=== PATIENT | male | born 1965 | race Caucasian/White ===

== ENCOUNTER 2021-12-05 19:06 | Emergency (ER) | payer MEDICAID ==
[~2021-12-05] VITALS: Ht 25.4 cm; Wt 107.5 kg
[2021-12-05 19:10] VITALS: BP_SYST 157
--- NOTE | 2021-12-05 19:11 | NUR ---
Patient triaged and placed in waiting room. VSS and patient appears in no acute distress at this time. Accompanied by SELF, awaiting available bed, and MD notified of need for MSE.
[2021-12-05 21:03] LABS: HEMATOCRIT 31.2 % (36-54); HEMOGLOBIN 10.8 g/dL (14.0-18.0); MEAN CORPUSCULAR HEMOGLOBIN 31 pg (27-31); MEAN CORPUSCULAR HGB CONC 35 % (32-36); MEAN CORPUSCULAR VOLUME 89 fL (79.0-98.0); PLATELET COUNT (AUTO) 182 K/uL (130-430); RED CELL DISTRIBUTION WIDTH 17.3 % (9.0-15.0)
[2021-12-05 21:11] LABS: WHITE BLOOD COUNT (AUTO) 2.1 K/uL (4.8-10.8)
[2021-12-05 21:19] LABS: CALCIUM 7.9 mg/dL (8.4-11.0); CREATININE 1.03 mg/dL (0.55-1.30); POTASSIUM 3.8 mmol/L (3.5-5.1)
[2021-12-05 21:30] LABS: ALBUMIN 2.9 g/dL (3.4-4.8); TOTAL BILIRUBIN 0.3 mg/dL (0.0-1.0)
[2021-12-05 21:33] LABS: BAND % (MANUAL) 3 % (0-6); LYMPHOCYTES % (MANUAL) 19 % (20-46)
[2021-12-05 21:34] LABS: BASOPHILS % (MANUAL) 0 % (0-2); EOSINOPHILS % (MANUAL) 0 % (0-7); METAMYELOCYTES % 1 % (0-0); MONOCYTES % (MANUAL) 12 % (0-11)
--- NOTE | 2021-12-05 21:46 | NUR ---
Pt C/O josé antonio lower extremity swelling States he was diagnosed with stage 4 lung cancer last september and was given 45 days to live AOX4 Verbally responsive Able to make needs known VSS NAD at this time Will continue to monitor
[2021-12-05 21:47] VITALS: BP_SYST 135
--- NOTE | 2021-12-05 22:46 | NUR ---
Paras becerra MD made aware
[2021-12-05] MEDS ORDERED: FURO80TA86 PO (23:00)
== END 2021-12-05 22:46 | disposition left against medical advice (07) ==
LOC: SED 19:06
DX: R60.0 Localized edema (principal); Z79.899 Other long term (current) drug therapy
CPT/HCPCS: 36415; 80053; 83880; 85007; 85027; 99283